=== PATIENT | male | born 1940 | race Caucasian/White ===

== ENCOUNTER 2023-10-19 15:14 | Observation (INO) | payer MEDICARE, SELFPAY ==
--- NOTE | 2023-10-18 12:31 | EKG12_ITS ---
Test Reason : PREOP Blood Pressure : / mmHG Vent. Rate : 076 BPM Atrial Rate : 076 BPM P-R Int : 176 ms QRS Dur : 094 ms QT Int : 418 ms P-R-T Axes : 087 091 071 degrees QTc Int : 470 ms Sinus rhythm with Premature atrial complexes Nonspecific ST and T wave abnormality Abnormal ECG Confirmed by TI ASHLEY, JERRICA ([id number]), restaurant expeditor RUTH MCQUEEN ([id number]) on 10/19/2023 9:36:15 AM Referred By: Roger Ball Confirmed By:JERRICA LUKE MD
[2023-10-18 13:07] LABS: Hematocrit 38.6 % (40-54); Hemoglobin 13.2 g/dL (13.0-16.5); Mean Corp Hgb Conc 34.2 g/dL (32-36); Mean Corpuscular Hgb 34.4 pg (27.0-32.0); Mean Corpuscular Volume 100.5 fL (80-94); Mean Platelet Vol. 10.1 fl (6.2-12.0); Platelet Count 196 K/mm3 (150-450); RBC Distribution Width CV 12.2 % (11.6-14.6); RBC Distribution Width SD 45.1 fl (35.1-43.9); Red Blood Count 3.84 M/mm3 (4.6-6.2); White Blood Count 6.7 K/mm3 (4.4-11.0)
[2023-10-18 13:15] LABS: International Normalized Ratio 1.2; Prothrombin Time (Protime)PT. 14.8 SECONDS (11.7-14.9)
[2023-10-18 13:40] LABS: Anion Gap 8 (5-15); BUN 35 mg/dL (7-18); BUN/Creat Ratio 17.5 RATIO (10-20); Calcium,Total 9.4 mg/dL (8.5-10.1); Chloride 107 mmol/L (98-107); EST Glomerular Filtration Rate 34 mL/min (>60); Est Glom Filt Rate - Afr Amer 41 mL/min (>60); Glucose 355 mg/dL (74-106); Potassium 4.4 mmol/L (3.5-5.1); Sodium Level 136 mmol/L (136-145)
[2023-10-18 13:54] LABS: Hemoglobin A1c 9.2 % (3.8-5.6)
[2023-10-19] VITALS (13 sets, daily range): BP systolic 109–163; BP diastolic 65–79; PULSE 61–71; RESP 16–18; TEMP 36.3–36.7; O2SAT 97–100; BMI 22.8
[2023-10-19] MEDS: Lactated Ringers 1,000 ML 15 ML IV (12:29)
--- NOTE | 2023-10-19 13:15 | PCM.PRE.AN2 ---
ASA Classification* ASA Classification ASA Classification: 3 Assessment & Plan Anesthesia* Anesthesia Assessment Anesthesia Assessment: Discussed sedation and/or anesthesia options, risks, benefits, and alternatives with patient/parents/legal guardian/POA. Questions invited. The patient/parents/legal guardian/POA seems to understand and agrees to proceed with anesthesia plan. Reviewed the physical assessment, medical history, allergy history and patient home medications list prior to surgery/procedure/anesthetic and documented any changes. Performed airway and anesthesia risk assessments. Anesthesia Type Anesthesia Type: General History Source History Obtained from:: Patient and Chart Anesthesia Focused Assessment* Temperature: 97.9 F Pulse Rate: 71 Blood Pressure: 163/79 Respiratory Rate: 18 Pulse Ox: 100 Oxygen Delivery Method: Room Air Airway Assessment Mouth opens: >3 cm Mallampati Score: III Teeth Condition: Full (Patient has full dentures they are out.) Neck Range of motion (ROM): Full ROM Pertinent Findings EKG Pertinent Findings:: October 18, 2023. Sinus rhythm with PACs. Nonspecific ST and T wave abnormality. ECHO Pertinent Findings:: 2019 echo showed ejection fraction of 65%. Consults Pertinent Findings:: Consult for chest pain and shortness of breath in 2019 and pulmonary embolus Focused Labs Anesthesia Preop lab: CBC WBC 6.7 K/mm3 (4.4-11.0) 10/18/23 12:46 RBC 3.84 M/mm3 (4.6-6.2) L 10/18/23 12:46 Hgb 13.2 g/dL (13.0-16.5) 10/18/23 12:46 Hct 38.6 % (40-54) L 10/18/23 12:46 Plt Count 196 K/mm3 (150-450) 10/18/23 12:46 CHEMISTRY Potassium 4.4 mmol/L (3.5-5.1) 10/18/23 12:46 Sodium 136 mmol/L (136-145) 10/18/23 12:46 BUN 35 mg/dL (7-18) H 10/18/23 12:46 Creatinine 2.00 mg/dL (0.70-1.30) H 10/18/23 12:46 Glucose 355 mg/dL (74-106) H 10/18/23 12:46 COAG PT 14.8 SECONDS (11.7-14.9) 10/18/23 12:46 Pre-Assessment Diagnosis/Proposed Procedure Planned Operative Procedure(s): TURP Anesthesia History 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 When Was Last Pacemaker Check QUESTION #4 FULL TEXT: You/Your Family Experience fever (hyperthermia) with Anesthesia Last Oral Intake Last Oral intake: Last Oral Intake NPO since 20:30 10/19/23 12:21 Meds taken in AM with sips of water? 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 Female No 10/14/23 13:56 HX of Motion Sickness No 10/14/23 13:56 HX of N/V After Surgery No 10/14/23 13:56 Non-Smoker Yes 10/14/23 13:56 Duration of Surgery greater Yes 10/14/23 13:56 than 60 minutes Number of Risk Factors 2 10/14/23 13:56 PONV Score Moderate Risk 10/14/23 13:56 Height & Weight Height & Weight: Anesthesia: Height & Weight Height 5 ft 9 in 10/19/23 12:21 Weight: 70 kg 10/19/23 12:21 Body Mass Index (BMI) 22.8 10/19/23 12:21 Respiratory Assessment Respiratory Assessment - hot die press operator: Respiratory Tract Infection Hx - hot die press operator Hx Respiratory Tract Infection No 10/14/23 13:56 STOP Sleep Apnea STOP Sleep Apnea - hot die press operator: STOP Sleep Apnea - hot die press operator Hx Hypertension Yes: CONTROLLED WITH MED 10/14/23 13:56 Hx Sleep Apnea No 10/14/23 13:56 CPAP BIPAP Do you snore loudly (louder No 10/14/23 13:56 than talking or can be heard Do you often feel tired/ Yes 10/14/23 13:56 fatigued/ sleepy during daytime? Has anyone observed you stop No 10/14/23 13:56 breathing during sleep? STOP Results Positive 10/14/23 13:56 QUESTION #5 FULL TEXT : Do you snore loudly (louder than talking or can be heard through closed doors)? 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 Specify any problems Hx of Preganancy in last 3 N/A 10/14/23 13:56 Months Nurse Filling Out Transfusion DSCHRIBER 10/14/23 13:56 & Questions: Date: 10/14/23 10/14/23 13:56 Time: 13:58 10/14/23 13:56 Patient unable to answer at this time (ie. confused, unrespo /Reproduction History /Reproductive History - hot die press operator: /Reproductive Hx- hot die press operator Hx Now No 10/14/23 13:56 Gestational Age (in weeks): EDC: Hx Hx Para Hx Section SAB No 10/14/23 13:56 Active Medications Active Medications: Current Medications Generic Name Dose Route Start Last Admin Trade Name Freq PRN Reason Stop Dose Admin Cefazolin Sodium 2 gm/ Sodium 110 mls @ 150 mls/hr 10/19/23 13:45 Chloride IV 10/19/23 14:28 PREOP ONE Lactated Ringer's 1,000 mls @ 15 mls/hr 10/19/23 12:15 10/19/23 12:29 IV 15 mls/hr .Q48H STONE Administration PFSH Medical History Loss of hearing Wears glasses Wears dentures Cancer Depression Anxiety Diabetes Prostate disease Bladder disease Low iron Hx of blood diseases High cholesterol Back pain Migraine headache Syncope Dietary restriction Constipation Former smoker Shortness of breath on exertion Leg cramps History of edema History of echocardiogram Cardiology follow-up encounter History of rheumatic fever Pulmonary embolism DVT (deep venous thrombosis) Stroke/cerebrovascular accident History of heart attack Hypertension Home Medications ?Medication ?Instructions ?Recorded ?Last Taken ?Type abacavir 600 mg-lamivudine 300 mg 1 tab PO DAILY HIV 10/14/23 10/19/23 History tablet alfuzosin 10 mg tablet,extended 10 mg PO DAILY 10/14/23 10/19/23 History release 24 hr amlodipine 10 mg tablet 10 mg PO QHS 10/14/23 10/18/23 History apixaban 2.5 mg tablet (Eliquis) 2.5 mg PO BID 10/14/23 10/16/23 History aspirin 81 mg tablet,delayed 81 mg PO DAILY 10/14/23 10/16/23 History release (Adult Aspirin Regimen) atorvastatin 20 mg tablet 20 mg PO QHS 10/14/23 10/16/23 History cholecalciferol (vitamin D3) 25 25 mcg PO DAILY 10/14/23 10/19/23 History mcg (1,000 unit) capsule (Vitamin D3) dapagliflozin propanediol 10 mg 10 mg PO DAILY 10/14/23 10/19/23 History tablet (Farxiga) fenofibrate 160 mg tablet 160 mg PO DAILY 10/14/23 Unknown History finasteride 5 mg tablet 5 mg PO DAILY 10/14/23 10/18/23 History icosapent ethyl 1 gram capsule 2 g PO BID 10/14/23 10/16/23 History (Vascepa) lisinopril 20 mg tablet 20 mg PO DAILY 10/14/23 10/19/23 History omega 3-klb-pza-fish oil 1,200 mg 1 cap PO BID 10/14/23 10/16/23 History (144 mg-216 mg) capsule (Fish Oil) raltegravir 400 mg tablet 400 mg PO BID 10/14/23 10/19/23 History (Isentress) Allergy/AdvReac Type Severity Reaction Status Date / Time No Known Allergies Allergy Verified 10/19/23 12:18 Surgical History Hx of left cataract extraction Hx of right cataract extraction Hx of prostate biopsy History of surgical removal of skin lesion History of lung surgery Hx laparoscopic cholecystectomy Hx of tonsillectomy Social History Smoking Status: Former smoker Review of Systems (Anesthesia) ROS Narrative System reviewed and no additional complaints, except as documented.
--- NOTE | 2023-10-19 14:00 | HP.PCM_ITS ---
HPI - General General Date of Service: 10/19/23 Chief Complaint: BPH with obstruction HPI Narrative TONYA AUSTIN, is a 83 M who presents for a transurethral section of the prostate for BPH with obstruction REPLACED BY [facility] Medical History Loss of hearing Wears glasses Wears dentures Cancer Depression Anxiety Diabetes Prostate disease Bladder disease Low iron Hx of blood diseases High cholesterol Back pain Migraine headache Syncope Dietary restriction Constipation Former smoker Shortness of breath on exertion Leg cramps History of edema History of echocardiogram Cardiology follow-up encounter History of rheumatic fever Pulmonary embolism DVT (deep venous thrombosis) Stroke/cerebrovascular accident History of heart attack Hypertension Home Medications ?Medication ?Instructions ?Recorded ?Last Taken ?Type abacavir 600 mg-lamivudine 300 mg 1 tab PO DAILY HIV 10/14/23 10/19/23 History tablet alfuzosin 10 mg tablet,extended 10 mg PO DAILY 10/14/23 10/19/23 History release 24 hr amlodipine 10 mg tablet 10 mg PO QHS 10/14/23 10/18/23 History apixaban 2.5 mg tablet (Eliquis) 2.5 mg PO BID 10/14/23 10/16/23 History aspirin 81 mg tablet,delayed 81 mg PO DAILY 10/14/23 10/16/23 History release (Adult Aspirin Regimen) atorvastatin 20 mg tablet 20 mg PO QHS 10/14/23 10/16/23 History cholecalciferol (vitamin D3) 25 25 mcg PO DAILY 10/14/23 10/19/23 History mcg (1,000 unit) capsule (Vitamin D3) dapagliflozin propanediol 10 mg 10 mg PO DAILY 10/14/23 10/19/23 History tablet (Farxiga) fenofibrate 160 mg tablet 160 mg PO DAILY 10/14/23 Unknown History finasteride 5 mg tablet 5 mg PO DAILY 10/14/23 10/18/23 History icosapent ethyl 1 gram capsule 2 g PO BID 10/14/23 10/16/23 History (Vascepa) lisinopril 20 mg tablet 20 mg PO DAILY 10/14/23 10/19/23 History omega 3-bee-csc-fish oil 1,200 mg 1 cap PO BID 10/14/23 10/16/23 History (144 mg-216 mg) capsule (Fish Oil) raltegravir 400 mg tablet 400 mg PO BID 10/14/23 10/19/23 History (Isentress) Allergy/AdvReac Type Severity Reaction Status Date / Time No Known Allergies Allergy Verified 10/19/23 12:18 Surgical History Hx of left cataract extraction Hx of right cataract extraction Hx of prostate biopsy History of surgical removal of skin lesion History of lung surgery Hx laparoscopic cholecystectomy Hx of tonsillectomy Social History Smoking Status: Former smoker Vital Signs Vital Signs Vital Signs: 10/19/23 12:21 10/19/23 12:21 10/19/23 13:42 Temperature 97.9 F 97.9 F Temperature Source Temporal Pulse Rate 71 71 Respiratory Rate 18 18 Respiratory Pattern Normal Blood Pressure 163/79 H 163/79 H Blood Pressure Mean 107 Blood Pressure Source Monitor Blood Pressure Position Semi-Fowlers Blood Pressure Location Right Arm Pulse Ox 100 100 Oxygen Delivery Method Room Air Room Air Weight Weight: 70 kg Body Mass Index (BMI) 22.8 Results Lab / Micro Data 10/18/23 12:46 10/18/23 12:46
[2023-10-19 14:05] LABS: Bedside Glucose 192 mg/dL (74-106)
--- NOTE | 2023-10-19 14:05 | PROS_PTH ---
PATIENT: TONYA AUSTIN LOC: [facility] U#:[id number] AGE/SX: 83/M ROOM: DE321 RE10/19/[address]: Dr. Roger Ball MD : 1940 BED: 1 DIS: 10/20/2023 SPEC #: [id number] RECD: 10/19/23 16:48 STATUS: DICK PRUITT #: [id number] THOMAS: 10/19/23 14:[address]: Roger Ball DEPT: SURGICAL PATHOLOGY RECD BY: Mabel Eddy ENTERED: 10/20/23 09:08 SP TYPE: TURP OTHR DR: MD Dr. Thomas Krishnan MD Tissues: Prostate, NOS Procedures: Surgery Specimen Level IV Comments: @ Specimen number changed from [id number] to [id number] @ on 10/20/23 at 1004 by ERICKA. HEADER OPERATION: Transurethral resection, prostate PRE-OP DIAGNOSIS: Benign prostate hyperplasia TISSUE SUBMITTED: Prostate pieces MICROSCOPIC DIAGNOSIS Prostate tissue, transurethral resection: Benign prostatic hyperplasia, glandular and stromal type. Chronic inflammation and focal basal cell hyperplasia. Fragments of stone (gross only). / 10/21/2023 MICROSCOPIC DESCRIPTION Slides are reviewed. GROSS DESCRIPTION Received is one container labeled with the patient's name and designated prostate tissue. The specimen consists of multiple irregular fragments of pink-parmar, rubbery, soft tissue that in aggregate weigh 7.0 gm and measure in aggregate 4.0 x 4.5 x 1.2 cm. Two round black stones are also noted each measuring 0.1cm in greatest dimension. Stones are for gross identification only. The entire specimen is submitted in ten cassette. / 10/20/2023 TC:5 CPT: 28328
[2023-10-19] MEDS: Cefazolin 2 GM in 0.9% Normal Saline (100mL Bag) 100 ML IV (14:30)
--- NOTE | 2023-10-19 15:19 | DCINST_ITS ---
Discharge Instructions Diet Discharge Diet: No restrictions Activity Discharge Activity: Return to Normal Activity and May Not Drive (while taking narcotic pain medications.) Dressing / Incision Call your doctor if you observe: Fever of 101 or Higher Follow Up Care Please Follow Up With: Roger Ball MD When: Call [phone] for an appointment Test Results: Test results from this visit will be discussed in further detail at your follow- up appointment, if applicable. Discharge Plan Admission Primary Reason for Your Visit: MARY Attending Provider: Roger Ball Primary Care Provider: Thomas Gandhi Consulting Providers: Melvin Dolan Instructions Patient Instructions: TURP, TUR Home Recovery, TUR Hospital Recovery Print Language: Maldivian Discharge Orders/Prescriptions Prescriptions: Continued atorvastatin 20 mg tablet 20 mg PO QHS Patient Comments: TAKE 1 TABLET BY MOUTH EVERY DAY dapagliflozin propanediol [Farxiga] 10 mg tablet 10 mg PO DAILY Patient Comments: [NO ORIGINAL SIG] abacavir-lamivudine 600-300 mg tablet 1 tab PO DAILY alfuzosin 10 mg tablet extended release 24 hr 10 mg PO DAILY Patient Comments: TAKE 1 TABLET BY MOUTH EVERY DAY amlodipine 10 mg tablet 10 mg PO QHS Patient Comments: TAKE 1 TABLET BY MOUTH EVERY DAY finasteride 5 mg tablet 5 mg PO DAILY Patient Comments: TAKE 1 TABLET BY MOUTH EVERY DAY fenofibrate 160 mg tablet 160 mg PO DAILY Patient Comments: TAKE 1 TABLET BY MOUTH EVERY DAY icosapent ethyl [Vascepa] 1 gram capsule 2 g PO BID Patient Comments: TAKE 2 CAPSULES BY MOUTH TWICE A DAY lisinopril 20 mg tablet 20 mg PO DAILY Patient Comments: TAKE 1 TABLET BY MOUTH EVERY DAY Isentress 400 mg tablet 400 mg PO BID omega 8-ppy-yva-fish oil [Fish Oil] 1,200 (144-216) mg capsule 1 cap PO BID cholecalciferol (vitamin D3) [Vitamin D3] 25 mcg (1,000 unit) capsule 25 mcg PO DAILY Held Eliquis 2.5 mg tablet 2.5 mg PO BID Hold Instructions: Resume on 11/02/23. Patient Comments: TAKE 1 TABLET BY MOUTH TWICE A DAY aspirin [Adult Aspirin Regimen] 81 mg tablet,delayed release (DR/EC) 81 mg PO DAILY Hold Instructions: Resume on 11/02/23. Referrals / Follow Up: Abundio Taveras MD [Non-Staff] - Roger Ball MD [Med Staff - Active Staff] - Disposition Disposition (needs filled in before D/C Order can be placed): Home, Self Care
--- NOTE | 2023-10-19 15:19 | PCM.OPRPT ---
Report of Operation Date of Procedure: 10/19/23 Pre-Operative Diagnosis: BPH with obstruction Post-Operative Diagnosis: Same Surgery/Procedure Performed:: Transurethral section of prostate Description of Surgical Findings:: In the preoperative setting I discussed with the patient how the surgery would be done with expect afterwards. We discussed how a prostate resection is done and we discussed the risk of the surgery including, bleeding, infection, retrograde ejaculation, changes with ejaculation or intercourse,. We discussed the possibility that the resection of the prostate may not alleviate his urinary symptoms. We discussed the small risk of developing scar tissue along the urethral channel and strictures. We also discussed the chance of the prostate could grow back and he may need further surgery or treatment in the future for prostate problems. Patient was taken back to the operating room, timeout procedure was performed, he was identified and marked and placed on the operating room table. He underwent general anesthesia. He was placed in dorsolithotomy position. Penis and testicles were prepped and draped in usual sterile fashion. Went into the bladder using the visual obturator with a resectoscope. Once inside the bladder identified the right and left ureteral orifice. I then identified the prostate and the anatomy of the prostate. I marked out the area of the sphincter and the verumontanum was identified. I then proceeded with the prostate resection first resected the median lobe. And then resected the right lobe of the prostate. Then to resect the left lobe of the prostate. I then resected the apical tissue of the prostate. This was a complete resection of all obstructive tissue to improve voiding and relieve obstruction. I then made sure that there was no injury to the sphincter or the verumontanum was still intact. At the end of the resection all the chips were Ellik out of the bladder. I then identified the left and right ureteral orifice and these were confirmed to be in good position and effluxing and not injured. The resectoscope was removed, a 22 Serbian catheter was placed into the bladder on continuous irrigation. And the urine was fairly light pink color and draining normally. He was taken back to the PACU in good condition. CPT 15949 Surgeon: Roger Ball Type of Anesthesia: General Drains: 22 Serbian three-way Elkins Estimated Blood Loss (mL): Minimal Admit VTE Documentation VTE Present on Admission: No VTE Mechan Device Prophylaxis: SCD's VTE Pharm Prophylaxis ordered?: No
--- NOTE | 2023-10-19 15:25 | PCM.POST.ANE ---
Anesthesia: Postop Eval I Current Vital Signs Temperature: 98.1 F Pulse Rate: 65 Blood Pressure: 125/69 Respiratory Rate: 16 Pulse Ox: 100 Oxygen Delivery Method: Room Air Assessment Airway patent: Yes Spontaneous unlabored respirations: Yes Mental status: Asleep nausea: No Vomiting: No Anesthesia Complication: No Fluid Hydration Crystalloid volume administer (ml): 800 Total IV fluid infused: 800 Progress Note Anesthesia document: Postop Eval 1 completed: Yes
[2023-10-19] MEDS: 0.9% Normal Saline (1000mL) 1,000 ML 125 ML IV (16:46)
[2023-10-19] MEDS: Finasteride 5 MG Tablet PO (16:47)
[2023-10-19] MEDS: Docusate Sodium 100 MG Capsule 200 MG PO ×2 (16:47→22:14)
--- NOTE | 2023-10-19 16:58 | PCM.POSTANE2 ---
Anesthesia Postop Eval I Sum Postop Eval Completion status Anesthesia document: Postop Eval 1 completed: Yes Anesthesia Postop Eval I Summary Anesthesia Postop Eval I Summary: Anesthesia Postop Eval I: Assessment Summary Airway patent Yes 10/19/23 15:57 [email or web address] Spontaneous unlabored Yes 10/19/23 15:57 [email or web address] respirations Mental status Asleep 10/19/23 15:57 [email or web address] nausea No 10/19/23 15:57 [email or web address] Vomiting No 10/19/23 15:57 [email or web address] Anesthesia Postop Eval I: Fluid Summary Crystalloid volume administer 800 10/19/23 15:57 [email or web address] (ml) Colloids volume administered ( ml) Blood Product volume administered (ml) Total IV fluid infused 800 10/19/23 15:57 [email or web address] Anesthesia Postop Eval I: Summary Notes Anesthesia Complication No 10/19/23 15:57 [email or web address] Anesthesia Complication Comment: Post-operative progress note Anesthesia: Postop Eval II Evaluation Mental status: Awake and Calm Pain Level: 1 nausea: No Vomiting: No Complications Anesthesia Complication: No
[2023-10-19] MEDS: Atorvastatin Calcium 20 MG Tablet PO (22:15)
[2023-10-19] MEDS: amLODIPine 10 MG Tablet PO (22:15)
[2023-10-19] MEDS: RALTEGRAVIR POTASSIUM 400 MG TABLET PO (22:16)
[2023-10-19] MEDS: Cefazolin 1 GM/50 ML BAG IV (22:17)
[2023-10-19] MEDS: Ketorolac 15 MG/ML Vial IV (22:32)
[2023-10-20 00:33] VITALS: BP 119/64; PULSE 57; RESP 16; TEMP 36.8; O2SAT 100
[2023-10-20] MEDS: 0.9% Normal Saline (1000mL) 1,000 ML 125 ML IV ×2 (00:38→08:50)
[2023-10-20] MEDS: Acetaminophen 325 MG Tablet PO ×2 (00:43→05:50)
[2023-10-20 04:46] VITALS: BP 123/61; PULSE 56; RESP 16; TEMP 36.4; O2SAT 99
[2023-10-20] MEDS: Cefazolin 1 GM/50 ML BAG IV (05:48)
--- NOTE | 2023-10-20 07:14 | PCM.PN.GU ---
Subjective Subjective 83-year-old male status post TURP urine is clear we will remove the catheter this morning and he can go home after he voids Objective Data Objective Data Vital Signs: Vital Signs Temp Pulse Resp BP Pulse Ox O2 Del Method 97.5 F L 56 L 16 123/61 H 99 Room Air 10/20/23 04:46 10/20/23 04:46 10/20/23 04:46 10/20/23 04:46 10/20/23 04:46 10/20/23 04:46 Oxygen Delivery Method Room Air Weight: 70 kg Body Mass Index (BMI) 22.8 Intake & Output: Intake and Output for Last 24 Hours 10/18/23 10/19/23 10/20/23 23:59 23:59 23:59 Intake Total 237 / 237 983.33 / 983.33 Output Total 375 / 375 1000 / 1000 Balance -138 / -138 -16.67 / -16.67 Lab / Micro Data 10/18/23 12:46 10/18/23 12:46 Labs: Laboratory Results - last 24 hr 10/19/23 12:22: POC Glucose 192 H
[2023-10-20 08:00] VITALS: BP 146/75; PULSE 57; RESP 18; TEMP 36.5; O2SAT 100
[2023-10-20] MEDS: Docusate Sodium 100 MG Capsule 200 MG PO (09:00)
[2023-10-20] MEDS: Tamsulosin HCl 0.4 MG Capsule PO (09:00)
[2023-10-20] MEDS: RALTEGRAVIR POTASSIUM 400 MG TABLET PO (09:01)
[2023-10-20] MEDS: Finasteride 5 MG Tablet PO (09:02)
[2023-10-20] MEDS: Lisinopril 20 MG Tablet PO (09:04)
[2023-10-20] MEDS: Fenofibrate 145 MG Tablet PO (09:07)
[2023-10-20] MEDS: Empagliflozin 25 MG Tablet PO (09:07)
--- NOTE | 2023-10-20 09:55 | CASEMGMT ---
CHANTELL MORGAN NOTE: Discharge order is in. CHANTELL MORGAN to room. Introduced self and role. Pt states he is independent @ home and helps to care of his who has Alzheimer's dementia. She is indep w/ADL's but pt does all IADL's for her. Pt also manages his own medications as well as hers. Pt used WW last night but states did not need to use it this morning and does not use one @ home, although he does have one available, if needed. Pt and live w/their son and his family in their walk-out basement and family is supportive and assist pt and his , as needed. Pt denies having any concerns w/discharging home. Dtr will take him home @ al. Pt offered/accepted Alzheimer's support group information. He declined wanting a referral made, stating he will call them later, if decides to do so in the future. Olivia DONOVAN RN, CM
[2023-10-20] MEDS: Ketorolac 15 MG/ML Vial IV (10:24)
[2023-10-20] MEDS: 0.9% Saline Lock 10 ML Syringe IV (10:24)
--- NOTE | 2023-10-20 10:55 | PHA.DC.MR.R ---
Pharmacy PA Med Reconciliation Pharmacy Service has performed discharge medication reconciliation for this patient. No new medications at time of discharge medication review. Medications reviewed are from previously reported home medications. The patient's discharge medication list was reviewed for discrepancies and discrepancies were resolved. Medications at Discharge Home Medications abacavir 600 mg-lamivudine 300 mg tablet 1 tab PO DAILY HIV 10/14/23 alfuzosin 10 mg tablet,extended release 24 hr 10 mg PO DAILY 10/14/23 amlodipine 10 mg tablet 10 mg PO QHS 10/14/23 apixaban 2.5 mg tablet (Eliquis) 2.5 mg PO BID 10/14/23 aspirin 81 mg tablet,delayed release (Adult Aspirin Regimen) 81 mg PO DAILY 10/14/23 atorvastatin 20 mg tablet 20 mg PO QHS 10/14/23 cholecalciferol (vitamin D3) 25 mcg (1,000 unit) capsule (Vitamin D3) 25 mcg PO DAILY 10/14/23 dapagliflozin propanediol 10 mg tablet (Farxiga) 10 mg PO DAILY 10/14/23 fenofibrate 160 mg tablet 160 mg PO DAILY 10/14/23 finasteride 5 mg tablet 5 mg PO DAILY 10/14/23 icosapent ethyl 1 gram capsule (Vascepa) 2 g PO BID 10/14/23 lisinopril 20 mg tablet 20 mg PO DAILY 10/14/23 omega 8-try-pfb-fish oil 1,200 mg (144 mg-216 mg) capsule (Fish Oil) 1 cap PO BID 10/14/23 raltegravir 400 mg tablet (Isentress) 400 mg PO BID 10/14/23
== END 2023-10-20 10:43 | disposition home or self-care (01) ==
LOC: SDC 15:57 → MS3 15:57
PROVIDERS: Anesthesiology; Admitting Provider Urology; PCP Internal Medicine; Referring Provider Urology; Visit Provider Urology
PROC: (CPT 52601; principal; 2023-10-19 13:55)
DX: N40.1 Benign prostatic hyperplasia with lower urinary tract symptoms (principal); E11.9 Type 2 diabetes mellitus without complications; I10 Essential (primary) hypertension; Z79.84 Long term (current) use of oral hypoglycemic drugs; E78.00 Pure hypercholesterolemia, unspecified; Z87.891 Personal history of nicotine dependence; R35.0 Frequency of micturition; R35.1 Nocturia; N13.8 Other obstructive and reflux uropathy; Z79.899 Other long term (current) drug therapy; Z79.82 Long term (current) use of aspirin; R06.02 Shortness of breath; Z86.718 Personal history of other venous thrombosis and embolism; Z79.01 Long term (current) use of anticoagulants
CPT/HCPCS: 52601; 36415; 80048; 82962; 83036; 85027; 85610; 85730; 88305; 93005; 96361; 96365; 96366; 96375; 96376; 99221; J7030; J7120; A4216; G0378; J2405